=== PATIENT | female | born 1995 | race African-American/Black ===

== ENCOUNTER 2016-09-19 09:48 | Emergency (ER) | payer OTHER ==
[~2016-09-19] VITALS: Ht 167.6 cm; Wt 67.9 kg
[2016-09-19 09:56] VITALS: TEMP 37; Ht 167.6 cm; Wt 67.9 kg
--- NOTE | 2016-09-19 10:33 | EMERGENCY ROOM VISIT NOTE ---
History Report prepared by Tracey: Sofía Dolan Under the Supervision of: Dr. Franki Centeno M.D. First contact with patient: 10:20 Chief Complaint: HEADACHE Stated Complaint: BREAKOUT, HEADACHE History of Present Illness The patient is a 21 year old female who presents to the Emergency Room with complaints of a persistent headache that began a few days ago. She currently rates her discomfort as a 7/10 in severity. The patient states that her headache has come on gradually. The patient denies any associated neck pain and denies taking anything for her discomfort. She states that she has a rash to her arms, legs, and stomach. The patient states that the rash is itchy and states that it started Thursday. She states that she recently moved from one apartment to another apartment recently. The patient notes a runny nose this morning. Source of History: patient Onset: few days ago Position: head Symptom Intensity: 7/10 Timing: other (persistent) Associated Symptoms: + rash Note: Associated Symptoms: runny nose Review of Systems See HPI for pertinent positives & negatives. A total of 10 systems reviewed and were otherwise negative. Past Medical & Surgical Medical Problems: (1) Eczema (2) Sickle cell trait Family History Gallbladder disease Hypertension Kidney disease Kidney stones Lung disease Seizures Stroke MOTHER, Onset:30's - 40 Social History Smoking Status: Never Smoker Alcohol Use: none Drug Use: none Marital Status: single Housing Status: lives with roommate Occupation Status: [employer] student Current/Historical Medications No Active Prescriptions or Reported Meds Allergies Coded Allergies: No Known Allergies (Unverified , 09/20/16) pt Physical Exam Vital Signs Date Time Temp Pulse Resp B/P Pulse Ox O2 Delivery O2 Flow Rate FiO2 09/19/16 12:38 69 18 115/81 99 Room Air 09/19/16 09:56 37.0 87 16 120/77 98 Room Air Physical Exam GENERAL: Patient is a healthy-appearing well-nourished HEAD: Normocephalic atraumatic EYES: Ocular movements intact pupils equal and react to light OROPHARYNX mucous membranes are moist no exudates present no erythema or edema present NECK: No evidence of meningitis or encephalitis on exam. Supple no nuchal rigidity CHEST: Good equal expansion LUNGS: Clear and equal to auscultation CARDIAC: Normal S1 and S2 ABDOMEN: Soft nontender no guarding BACK: No CVA tenderness EXTREMITIES: No pain upon palpation normal muscle strength in all groups no clubbing cyanosis or edema NEURO: Patient is following commands is answering questions appropriately. Alert and oriented x3 Cranial Nerves 2-12 grossly intact SKIN: Raised bumps in the groin, below right breast, and at the decubitus area of the right elbow. Areas are itchy. Medical Decision & Procedures Laboratory Results 09/19/16 10:50 Red Blood Count 3.97, Mean Corpuscular Volume 84.4, Mean Corpuscular Hemoglobin 30.0, Mean Corpuscular Hemoglobin Concent 35.5, Mean Platelet Volume 8.7, Neutrophils (%) (Auto) 44.3, Lymphocytes (%) (Auto) 45.5, Monocytes (%) (Auto) 7.1, Eosinophils (%) (Auto) 2.5, Basophils (%) (Auto) 0.3, Neutrophils # (Auto) 1.62, Lymphocytes # (Auto) 1.66, Monocytes # (Auto) 0.26, Eosinophils # (Auto) 0.09, Basophils # (Auto) 0.01 09/19/16 10:50 Test 09/19/16 10:50 White Blood Count 3.65 K/uL (4.8-10.8) Red Blood Count 3.97 M/uL (4.2-5.4) Hemoglobin 11.9 g/dL (12.0-16.0) Hematocrit 33.5 % (37-47) Mean Corpuscular Volume 84.4 fL (80-100) Mean Corpuscular Hemoglobin 30.0 pg (25-34) Mean Corpuscular Hemoglobin Concent 35.5 g/dl (32-36) Platelet Count 273 K/uL (130-400) Mean Platelet Volume 8.7 fL (7.4-10.4) Neutrophils (%) (Auto) 44.3 % Lymphocytes (%) (Auto) 45.5 % Monocytes (%) (Auto) 7.1 % Eosinophils (%) (Auto) 2.5 % Basophils (%) (Auto) 0.3 % Neutrophils # (Auto) 1.62 K/uL (1.4-6.5) Lymphocytes # (Auto) 1.66 K/uL (1.2-3.4) Monocytes # (Auto) 0.26 K/uL (0.11-0.59) Eosinophils # (Auto) 0.09 K/uL (0-0.5) Basophils # (Auto) 0.01 K/uL (0-0.2) RDW Standard Deviation 38.7 fL (36.4-46.3) RDW Coefficient of Variation 12.5 % (11.5-14.5) Immature Granulocyte % (Auto) 0.3 % Immature Granulocyte # (Auto) 0.01 K/uL (0.00-0.02) Prothrombin Time 11.3 SECONDS (9.0-12.0) Prothromb Time International Ratio 1.1 (0.9-1.1) Activated Partial Thromboplast Time 29.1 SECONDS (21.0-31.0) Partial Thromboplastin Ratio 1.1 Anion Gap 5.0 mmol/L (3-11) Est Creatinine Clear Calc Drug Dose 103.6 ml/min Estimated GFR () 122.3 Estimated GFR (Non- 105.5 BUN/Creatinine Ratio 12.4 (10-20) Calcium Level 8.5 mg/dl (8.5-10.1) Total Bilirubin 0.5 mg/dl (0.2-1) Direct Bilirubin 0.2 mg/dl (0-0.2) Aspartate Amino Transf (AST/SGOT) 10 U/L (15-37) Alanine Aminotransferase (ALT/SGPT) 17 U/L (12-78) Alkaline Phosphatase 48 U/L (45-117) Total Protein 7.0 gm/dl (6.4-8.2) Albumin 3.9 gm/dl (3.4-5.0) Lipase 101 U/L (73-393) Thyroid Stimulating Hormone (TSH) 1.220 uIu/ml (0.300-4.500) Labs reviewed by ED physician. Medications Administered Medications (Trade) Dose Ordered Sig/Allyssa Route Start Time Stop Time Status Last Admin Dose Admin Sodium Chloride (Nss 1000ml) 1,000 ml @ 999 mls/hr Q1H1M STAT IV 09/19/16 10:45 09/19/16 11:45 DC 09/19/16 11:28 999 MLS/HR Diphenhydramine HCl (Benadryl Inj) 50 mg NOW STAT IV 09/19/16 10:45 09/19/16 10:48 DC 09/19/16 11:27 50 MG Permethrin (Elimite 5% Crm) 1 appln NOW STAT EXT 09/19/16 10:45 09/19/16 10:48 DC 09/19/16 11:31 1 APPLN ED Course 1023: Past medical records reviewed. The patient was evaluated in room B3A. A complete history and physical examination was performed. 1040: Ordered Hycodan Syrup 5 ml PO, Sodium Chloride 500 ml @ 999 mls/hr IV. 1045: Ordered Permethrin 1 appln EXT, Benadryl Inj 50 mg IV, Sodium Chloride 1000 ml @ 999 mls/hr IV. 1220: I reevaluated the patient and she is resting comfortably. I discussed the exam findings with her and I discussed the treatment plan. She verbalized complete understanding and agreement. She is ready to go home. Medical Decision Differential diagnosis: Etiologies such as migraine headache, meningitis, sinusitis, CO exposure, ICH, SAH, infection, tumor, headache, sinus thrombosis, arterial dissection, as well as others were entertained. This is a 21-year-old female who presents emergency department complaining of headache as well as what appears to be scabies on examination. For this reason the patient was started on permethrin cream in the emergency department. She was told to take this home and given instructions on how to use it. The patient has no evidence of meningitis encephalitis on examination. She was given normal saline bolus along with Compazine and Benadryl. Repeat examination revealed improvement patient's symptoms. The patient wishes to be discharged home for follow-up with her class and I believe that this is reasonable. Patient and mother were in agreement with the treatment plan. Impression Primary Impression: Rash Additional Impression: Headache Scribe Attestation The scribe's documentation has been prepared under my direction and personally reviewed by me in its entirety. I confirm that the note above accurately reflects all work, treatment, procedures, and medical decision making performed by me. Departure Information Dispostion Home / Self-Care Prescriptions No Active Prescriptions or Reported Meds Referrals No Doctor, Assigned (PCP) Forms HOME CARE DOCUMENTATION FORM, IMPORTANT VISIT INFORMATION, School Instructions, Work Instructions Patient Instructions Headache Pain, My [facility], Rash - [facility] Additional Instructions Apply cream; Repeat in 14 days You have been examined and treated today on an emergency basis only. This is not a substitute for, or an effort to provide, complete comprehensive medical care. It is impossible to recognize and treat all injuries or illnesses in a single emergency department visit. It is therefore important that you follow up closely with your PCP. Call as soon as possible for an appointment. Thank you for your time and consideration. I look forward to speaking with you again soon. Please don't hesitate to call us if you have any questions. Problem Qualifiers Additional Impression: Headache Headache type: tension-type Headache chronicity pattern: acute headache Intractability: not intractable Qualified Codes: G44.209 - Tension-type headache, unspecified, not intractable
[2016-09-19] MEDS ORDERED: HYDROCODONE/HOMATROPINE SYRUP 5MG/1.5MG 5ML UDP PO STA (10:39)
[2016-09-19] MEDS ORDERED: SODIUM CHLORIDE 0.9% 500ML 500 ML IV STA (10:39)
[2016-09-19] MEDS ORDERED: PERMETHRIN 5% CR 60 GM TUBE EXT STA (10:45)
[2016-09-19] MEDS ORDERED: DEXAMETHASONE SOD INJ 10 MG/ML VIAL IV ONE (10:45)
[2016-09-19] MEDS ORDERED: KETOROLAC TROMETHAMINE 30 MG/ML VIAL IV STA (10:45)
[2016-09-19] MEDS ORDERED: PROCHLORPERAZINE 5 MG/ML 2 ML VIAL IV STA (10:45)
[2016-09-19] MEDS ORDERED: SODIUM CHLORIDE 0.9% 1000ML 1,000 ML IV STA (10:45)
[2016-09-19] MEDS ORDERED: DiphenhydrAMINE HCL 50 MG/ML VIAL IV STA (10:45)
[2016-09-19 10:59] LABS: BASO % 0.3 %; BASO ABS # 0.01 K/uL (0-0.2); COMPLETE YES; EOS % 2.5 %; HEMATOCRIT 33.5 % (37-47); IG% 0.3 %; LYMPH % 45.5 %; LYMPH ABS # 1.66 K/uL (1.2-3.4); MEAN CELL VOLUME 84.4 fL (80-100); MEAN CORPUSCULAR HGB CONC 35.5 g/dl (32-36); MEAN PLATELET VOLUME 8.7 fL (7.4-10.4); MONO % 7.1 %; NEUT % 44.3 %; PLATELET COUNT 273 K/uL (130-400); RED BLOOD COUNT 3.97 M/uL (4.2-5.4); WHITE BLOOD COUNT 3.65 K/uL (4.8-10.8)
[2016-09-19 11:11] LABS: INR 1.1 (0.9-1.1); PARTIAL THROMBOPLASTIN RATIO 1.1; PROTHROMBIN TIME (PATIENT) 11.3 SECONDS (9.0-12.0)
[2016-09-19 11:17] LABS: BUN/CREATININE RATIO 12.4 (10-20); CALCIUM 8.5 mg/dl (8.5-10.1); CREATININE 0.79 mg/dl (0.60-1.20); POTASSIUM 3.5 mmol/L (3.5-5.1)
[2016-09-19 11:28] LABS: THYROID STIMULATING HORMONE 1.22 uIu/ml (0.300-4.500)
[2016-09-19 12:38] VITALS: BP 115/81; PULSE 69; O2SAT 99
== END 2016-09-19 12:59 | disposition home or self-care (01) ==
LOC: C.EDB 09:52
DX: R21 Rash and other nonspecific skin eruption (principal); G44.209 Tension-type headache, unspecified, not intractable; D57.3 Sickle-cell trait; Z82.49 Family history of ischemic heart disease and other diseases of the circulatory system; Z84.1 Family history of disorders of kidney and ureter; Z82.0 Family history of epilepsy and other diseases of the nervous system; Z82.3 Family history of stroke

== ENCOUNTER 2016-09-20 03:18 | Emergency (ER) | payer OTHER ==
[~2016-09-20] VITALS: Ht 167.6 cm; Wt 53.7 kg
[2016-09-20 03:24] VITALS: TEMP 36.6; Ht 167.6 cm; Wt 53.7 kg
[2016-09-20 05:55] VITALS: BP 106/66; PULSE 59; O2SAT 99
--- NOTE | 2016-09-20 07:20 | EMERGENCY ROOM VISIT NOTE ---
History Report prepared by Tracey: Sanchez Carter Under the Supervision of: Dr. Rizwana Carrasco D.O. First contact with patient: 05:10 Chief Complaint: OTHER COMPLAINT Stated Complaint: MEDICATION GIVEN EARLIER NOT RESPONDING History of Present Illness The patient is a 21 year old female who presents to the Emergency Room with complaints of constant lethargy beginning today. She states that she has been dealing with a persistent rash for a week, and was started on a new cream earlier today. She states that the rash is on her bilateral arms, bilateral legs , chest and back. The patient states that she has felt very tired and weak ever since she began using the prescribed cream. She states that her rash is still itching as well. She states that nothing has improved her lethargy. The patient' s mother states that the patient "just isn't alert". She states that the patient has been a little confused as well. Source of History: patient Onset: Today Quality: other (lethargy) Timing: constant Modifying Factors (Relieving): other (none) Associated Symptoms: + rash Review of Systems See HPI for pertinent positives & negatives. A total of 10 systems reviewed and were otherwise negative. Past Medical & Surgical Medical Problems: (1) Eczema (2) Sickle cell trait Family History Gallbladder disease Hypertension Kidney disease Kidney stones Lung disease Seizures Stroke MOTHER, Onset:30's - 40 Social History Smoking Status: Never Smoker Alcohol Use: none Drug Use: none Marital Status: single Housing Status: lives with roommate Occupation Status: [employer] student Current/Historical Medications No Active Prescriptions or Reported Meds Allergies Coded Allergies: No Known Allergies (Unverified , 09/20/16) pt Physical Exam Vital Signs Date Time Temp Pulse Resp B/P Pulse Ox O2 Delivery O2 Flow Rate FiO2 09/20/16 05:55 59 18 106/66 99 09/20/16 03:24 36.6 64 18 114/71 96 Room Air Physical Exam HEENT: Head - normocephalic and atraumatic Pupils are equal, round, and reactive to light. Extraocular eye muscles are intact, and sclera are anicteric. Nose - moist nasal mucosa without discharge. Mouth - moist buccal mucosa. Oropharynx is nonerythematous and there is no tonsillar exudate or edema noted. Neck: Supple; no JVD, nuchal rigidity, cervical lymphadenopathy. Heart: Regular rate and rhythm. There is a normal S1 and S2 with no murmurs, clicks, or gallops appreciated. Lungs: Clear to auscultation bilaterally with no wheezes, rales, or rhonchi. Abdomen: Soft, completely nontender, nondistended, with good bowel sounds. There are no palpable pulsatile masses or hepatosplenomegaly. There is no guarding, rigidity, or rebound noted. Extremities: No evidence of cyanosis, clubbing, or edema. There are easily palpable peripheral pulses. Skin: warm and dry with good turgor. Maculopapular rash concentrated on the ventral aspects of both forearms and right flank. Medical Decision & Procedures ED Course 0518: Past medical records reviewed. The patient was evaluated in room C5. A complete history and physical exam was performed. I reviewed the records from earlier today. The mother was quite concerned with what medication she had received while here in the emergency department. The patient did receive IV Benadryl. This would certainly explain why the patient may have been tired after her visit to the emergency department earlier today. I offered to prescribe additional medications such as steroids for the patient' s diffuse rash and significant itch but the mother declined. I suggested that the patient continue to use the prescribed cream from earlier today and Benadryl or Zantac by mouth for itch. The mother explains that she plans to have the patient evaluated back at her telecommunications project manager in [facility]. Medical Decision The patient is a 21 year old female who presents to the ED with lethargy beginning after a new medication. Differential diagnosis includes acute allergic reaction, drug rash, exacerbation of eczema, as well as other etiologies were considered. The rash seems be primarily concentrated on the ventral aspect of the forearms and right flank. The patient has been scratching at it significantly. This rash may or presented in acute allergic reaction or a drug rash. It's difficult to tell. There is no evidence of hives or urticaria. This could also represent acute exacerbation of the patient's eczema which she has a history of. I believe follow-up with dermatology as appropriate. Impression Primary Impression: Rash Scribe Attestation The scribe's documentation has been prepared under my direction and personally reviewed by me in its entirety. I confirm that the note above accurately reflects all work, treatment, procedures, and medical decision making performed by me. Departure Information Dispostion Home / Self-Care Prescriptions No Active Prescriptions or Reported Meds Referrals No Doctor, Assigned (PCP) Forms HOME CARE DOCUMENTATION FORM, IMPORTANT VISIT INFORMATION, WORK / SCHOOL INSTRUCTIONS Patient Instructions [facility], [facility], Rash Skin Self Care Additional Instructions Rest Continue to use your cream as directed. Benadryl - 15mg every 4-6 hours for itch. This may make you sleepy. Return to the ER if symptoms worsen. Follow up with dermotologist
== END 2016-09-20 05:53 | disposition home or self-care (01) ==
LOC: C.EDB 03:20 → C.EDC 05:53
DX: R21 Rash and other nonspecific skin eruption (principal); L30.9 Dermatitis, unspecified; D57.3 Sickle-cell trait; Z83.79 Family history of other diseases of the digestive system; Z82.49 Family history of ischemic heart disease and other diseases of the circulatory system; Z84.1 Family history of disorders of kidney and ureter; Z83.6 Family history of other diseases of the respiratory system

== ENCOUNTER 2017-06-04 17:27 | Emergency (ER) | payer OTHER ==
[~2017-06-04] VITALS: Ht 167.6 cm; Wt 53.9 kg
[~2017-06-04 17:27] MED LIST: POLYSOL21 OPL
[2017-06-04 17:30] VITALS: BP 109/67; PULSE 78; TEMP 36.7; O2SAT 98; Ht 167.6 cm; Wt 53.9 kg
--- NOTE | 2017-06-04 18:06 | EMERGENCY ROOM VISIT NOTE ---
History First contact with patient: 17:41 Chief Complaint: SORETHROAT Stated Complaint: SORE THROAT, EYES REDNESS History of Present Illness The patient is a 21 year old female who presents to the Emergency Room with complaints of bilateral eye irritation, sore throat and feverish symptoms. The patient was seen here a few days ago with symptoms in only the left eye. At that point, the patient had a syncopal episode. She was diagnosed with a viral illness and also conjunctivitis. She was put on Polytrim drops, which she has been using as prescribed. The patient did not take her temperature at home. She has been taking ibuprofen for her symptoms. She denies any nausea or vomiting. She denies any chest pain or difficulty breathing. The patient has a history of sickle cell trait. Review of Systems 6 system review negative. Please see pertinent positives in the history of present illness section. Past Medical/Surgical History Medical Problems: (1) Eczema (2) Sickle cell trait Family History Gallbladder disease Hypertension Kidney disease Kidney stones Lung disease Seizures Stroke MOTHER, Onset:30's - 40 Social History Smoking Status: Never Smoker Alcohol Use: none Drug Use: none Marital Status: single Housing Status: lives with roommate Occupation Status: [employer] student Current/Historical Medications Scheduled Polymyxin B-Trimethoprim (Trimethoprim Sulfate/Poly 91535-6.1 Unit/ml-%), 1 DROPS OPL QID Physical Exam Vital Signs Date Time Temp Pulse Resp B/P (MAP) Pulse Ox O2 Delivery O2 Flow Rate FiO2 06/04/17 17:41 Room Air 98 06/04/17 17:30 36.7 78 16 109/67 98 Room Air Physical Exam VITALS: Vitals are noted on the nurse's note and reviewed by myself. Vital signs stable. GENERAL: 21-year-old female, in no acute distress, nondiaphoretic, well- developed well-nourished. SKIN: The skin was without rashes, erythema, edema, or bruising. HEAD: Normocephalic atraumatic. EARS: External auditory canals clear, tympanic membranes pearly gayle without erythema or effusion bilaterally. EYES: Pupils equal round and reactive to light and accommodation. Conjunctivae injected bilaterally, sclerae without icterus. Extraocular movements intact. Slight clear drainage from the eyes bilaterally. MOUTH: Mucous membranes slightly dry. Tonsils mildly erythematous. White exudate noted on the right tonsil. Uvula midline. Airway patent. Tongue does not deviate. NECK: Supple without nuchal rigidity. Lymphadenopathy in the posterior cervical chain. Cervical spine is nontender. No JVD. HEART: Regular rate and rhythm without murmurs gallops or rubs. LUNGS: Clear to auscultation bilaterally without wheezes, rales or rhonchi. No accessory muscle use. MUSCULOSKELETAL: No muscle atrophy, erythema, or edema noted. Strength 5/5 throughout. NEURO: Patient was alert and oriented to person place and time. Normal sensation to touch. No focal neurological deficits. Medical Decision & Procedures Medications Administered Medications (Trade) Dose Ordered Sig/Allyssa Route Start Time Stop Time Status Last Admin Dose Admin Ciprofloxacin HCl (Ciprofloxacin 0.3% Op Soln) 2 drops NOW ONCE OP 06/04/17 19:00 06/04/17 19:01 DC 06/04/17 19:17 2 DROPS ED Course The patient was seen and examined A strep test was performed She was given Ciloxan drops Discharge instructions were reviewed, and she was discharged in good condition Medical Decision Differential diagnosis: Strep pharyngitis, viral pharyngitis, other viral syndrome, viral conjunctivitis, bacterial conjunctivitis, corneal abrasion/ulcer This patient is a 21-year-old female that presents to emergency department with complaints of bilateral eye redness and continued sore throat. On exam, she does have injected conjunctiva bilaterally. She also had clear drainage. It did not necessarily appear like a bacterial conjunctivitis. She does not wear contact lenses. She denies any foreign body sensation or severe pain. I do not suspect a corneal abrasion, laceration or foreign body. She did have some tonsillar exudate. A rapid strep test was negative. His is likely viral and I do not find oral antibiotics necessary. She is nontoxic in appearance. She is afebrile. The patient is on Polytrim drops for possible conjunctivitis. This could be irritating her eyes. This was changed to Ciloxan drops. She was instructed to rest and stay well hydrated. She will continue ibuprofen as needed for pain/fever. The patient was given the name of an tunnel miner and instructed to call them if the symptoms are not improving. She agrees to return to the emergency department with any new or worsening symptoms This chart was completed in part utilizing [employer] Voice Recognition software. Attempts were made to minimize the grammatical errors, random word insertions, pronoun errors and incomplete sentences. Any formal questions or concerns about the content, text or information contained within the body of this dictation should be directly addressed to the provider for clarification. Medication Reconcilliation Current Medication List: was personally reviewed by me Blood Pressure Screening Patient's blood pressure: Normal blood pressure Impression Primary Impression: Conjunctivitis Additional Impression: Pharyngitis Departure Information Dispostion Home / Self-Care Condition GOOD Referrals No Doctor, Assigned (PCP) Tucker Cage D.O. Patient Instructions My [facility] Additional Instructions Please use Ciloxan drops as follows: 2 drops to each eye every 2 hours while awake for the first 2 days. Then the use 2 drops every 6 hours for 3 days. If your symptoms do not improve, please follow-up with the tunnel miner. A number has been provided. Please continue supportive care with plenty of fluids and rest. You may take Tylenol and ibuprofen for fever or pain Ibuprofen 600 mg and/or Tylenol 1000 mg every 8 hours. You may also alternate these medications for more effective pain relief: Ibuprofen --4 HRS--> Tylenol --4 HRS--> ibuprofen --4 HRS--> Tylenol .... Please follow-up with [facility] if your symptoms are not improving in the next 3 days Please return to the emergency department with any new or worsening symptoms. Problem Qualifiers
[2017-06-04] MEDS ORDERED: CIPROFLOXACIN HCL 0.3% OP SOLN 2.5 ML BTL OP ONE (19:00)
== END 2017-06-04 19:18 | disposition home or self-care (01) ==
LOC: C.EDB 17:28
DX: H10.9 Unspecified conjunctivitis (principal); J02.9 Acute pharyngitis, unspecified; L30.9 Dermatitis, unspecified; D57.3 Sickle-cell trait; Z83.6 Family history of other diseases of the respiratory system; Z84.1 Family history of disorders of kidney and ureter; Z83.79 Family history of other diseases of the digestive system; Z82.49 Family history of ischemic heart disease and other diseases of the circulatory system